=== PATIENT | female | born 1985 | race African-American/Black ===

== ENCOUNTER → 2018-10-24 | Outpatient (CLI) | payer OTHER ==
[2018-10-24 08:13] LABS: ABSOLUTE LYMPHOCYTES (AUTO) 1.8 10^3/uL (0.5-4.7); ABSOLUTE MONOCYTES (AUTO) 0.2 10^3/uL (0.1-1.4); ABSOLUTE NEUT (AUTO) 2.1 10^3/uL (1.7-8.2); BASOPHILS % (AUTO) 0.3 % (0-2); EOSINOPHILS % (AUTO) 0.7 % (0-6); HEMATOCRIT 40.1 % (36.0-47.0); HEMOGLOBIN 13.7 g/dL (12.0-15.5); LYMPHOCYTES % (AUTO) 43.7 % (13-45); MEAN CORPUSCULAR HEMOGLOBIN 31.4 pg (27.0-33.4); MEAN CORPUSCULAR HGB CONC 34.2 g/dL (32.0-36.0); MEAN CORPUSCULAR VOLUME 92 fl (80-97); MONOCYTES % (AUTO) 5.1 % (3-13); PLATELET COUNT 229 10^3/uL (150-450); RED BLOOD COUNT 4.35 10^6/uL (3.72-5.28); RED CELL DISTRIBUTION WIDTH 12.2 % (11.5-14.0); SEGMENTED NEUTROPHILS % (AUTO) 50.2 % (42-78); TOTAL CELLS COUNTED % (AUTO) 100 %; WHITE BLOOD COUNT 4.2 10^3/uL (4.0-10.5)
[2018-10-24 08:37] LABS: ALBUMIN 3.7 g/dL (3.5-5.0); ALKALINE PHOSPHATASE 64 U/L (38-126); ANION GAP 9 (5-19); ASPARTATE AMINO TRANSFERASE 26 U/L (14-36); BILIRUBIN,DIRECT 0.2 mg/dL (0.0-0.4); BILIRUBIN,TOTAL 0.6 mg/dL (0.2-1.3); BLOOD UREA NITROGEN 12 mg/dL (7-20); CALCIUM 9.4 mg/dL (8.4-10.2); CARBON DIOXIDE 25 mmol/L (22-30); CHLORIDE 104 mmol/L (98-107); CHOLESTEROL 175.83 mg/dL (0-200); GLUCOSE 79 mg/dL (75-110); POTASSIUM 4.1 mmol/L (3.6-5.0); TOTAL PROTEIN 6.9 g/dL (6.3-8.2); TRIGLYCERIDES 47 mg/dL (<150)
[2018-10-24 08:48] LABS: DIRECT LDL 116 mg/dL (<100)
[2018-10-24 09:47] LABS: FOLATE > 20.00 ng/mL (>2.76)
[2018-10-27 08:06] LABS: VITAMIN B1 (THIAMINE) 127.4 nmol/L (66.5-200.0)
[2018-10-27 17:37] LABS: VITAMIN A 45.4 ug/dL (18.9-57.3)
== END ==
LOC: OD 07:18
PROVIDERS: ATTEND Surgery
DX: Z98.84 Bariatric surgery status (principal)
CPT/HCPCS: 36415; 80048; 80061; 80076; 82306; 82607; 82746; 84252; 84425; 84590; 85025